=== PATIENT | female | born 1945 | race Caucasian/White ===

== ENCOUNTER 2016-12-06 22:44 | Emergency (ER) | payer OTHER, MEDICARE ==
[~2016-12-06] VITALS: Ht 154.9 cm; Wt 90.1 kg
[2016-12-06 23:36] LABS: HEMATOCRIT 35.9 % (36.0-46.0); MCH 29.7 PG (29.0-34.0); MCHC 34.3 G/DL (30.0-36.0); MCV 86.7 FL (83-99); MEAN PLAT.VOLUME 10.7 uM^3 (9.5-12.4); PLATELET COUNT 310 K/uL (156-360); RBC DIS.WIDTH-CV 13.1 % (11.8-14.6); RBC DIS.WIDTH-SD 40.4 % (39-53); RED BLOOD COUNT 4.14 M/uL (3.80-5.20); WHITE BLOOD COUNT 8.1 K/uL (4.1-10.2)
[2016-12-06 23:47] LABS: CHLORIDE 108 mEq/L (99-109); POTASSIUM 3.7 mEq/L (3.7-5.4); SODIUM 142 mEq/L (136-147)
[2016-12-06 23:49] LABS: GLUCOSE 105 mg/dL (70-99)
[2016-12-06 23:50] LABS: ANION GAP 9 MEQ/L (2-14)
[2016-12-06 23:53] LABS: GFR ESTIMATE (CALCULATED) > 59 mL/min/
[2016-12-06 23:54] LABS: UREA NITROGEN (BUN) 22 mg/dL (9-23)
[2016-12-06 23:55] LABS: TROP-I INTERPRETATION NEGATIVE; TROPONIN-I < 0.01 ng/mL (0.0-0.30)
[2016-12-07] MEDS ORDERED: NORVASC10 MG PO (01:35)
[2016-12-07] MEDS ORDERED: ATIVAN2 MG PO (01:41)
[2016-12-07 01:46] VITALS: BP 134/77
== END 2016-12-07 01:47 | disposition home or self-care (01) ==
LOC: EME 22:44
PROVIDERS: Emergency Medicine
DX: I10 Essential (primary) hypertension (principal); R51 Headache; F41.9 Anxiety disorder, unspecified; E78.5 Hyperlipidemia, unspecified; E03.9 Hypothyroidism, unspecified; Z96.643 Presence of artificial hip joint, bilateral
CPT/HCPCS: 80048; 84484; 85027; 93005; 99281; 99284